=== PATIENT | female | born 1945 | race African-American/Black ===

== ENCOUNTER 2017-08-29 09:36 | Emergency (ER) | payer MEDICARE, MEDICAID ==
[2017-08-29 10:42] LABS: ABS Basophils 0.1 10^3/ul (0-0.2); ABS Eosinophils 0.4 10^3/ul (0-0.6); ABS Monocytes 0.8 10^3/ul (0-0.8); ABS Neutrophils 8.9 10^3/ul (1.5-7.7); ABS Nucleated RBC 0 10^3/ul; Eosinophil % 3.4 % (0-6); Hematocrit 35 % (35-47); Hemoglobin 11.6 g/dl (12.0-16.0); Lymphocyte % 16.4 % (25-47); Mean Corpuscular HGB Conc 33 g/dl (31-36); Mean Corpuscular Hemoglobin 30 pg (27-31); Mean Corpuscular Volume 91 fL (80-97); Mean Platelet Volume 8.5 um3 (7.4-10.4); Nucleated Red Blood Cells % 0; Platelet Count 274 10^3/ul (150-450); Red Blood Count 3.83 10^6/ul (4.0-5.4); Red Cell Distribution Width 15 % (10.5-15); White Blood Count 12.2 10^3/ul (3.5-10.8)
[2017-08-29 10:52] LABS: INR 1.06 (0.77-1.02)
[2017-08-29 12:04] VITALS: BP 153/80
--- NOTE | 2017-08-29 12:13 | RAD ---
INDICATION: Chest pain. COMPARISON: Correlation is made with a prior chest x-ray study from December 02, [address] of the abdomen and pelvis from February 27, 2017. TECHNIQUE: A portable view of the chest was obtained. FINDINGS: The heart appears mildly enlarged and unchanged from the prior study. There is increased density present overlying the left lower lobe which may represent an infiltrate. This appears unchanged from the prior exam and some of the density appears to be related to a hiatal hernia which is seen on the prior CT study. No pleural effusion is seen. IMPRESSION: LEFT BASILAR DENSITY LIKELY SECONDARY TO HIATAL HERNIA AN OVERLYING INFILTRATE CANNOT BE RULED OUT.
--- NOTE | 2017-08-29 20:53 | ED ---
Dirk Harvey Angela, scribed for Jaime Blackmon MD on 08/29/17 at 1020 . HPI Chest Pain - HPI Summary HPI Summary: This pt is a 72 y/o female presenting to [facility] from colonoscopy suite for chest pain today. Pt reports she was scheduled to have a colonoscopy today when she began to have chest pain after she checked in today. Pt states she had a lot of gas and she had one "big burp" today which completely resolved her chest pain. Currently pt denies any chest pain. Denies SOB, cough, abd pain, fever. PMHx: hiatal hernia, DM, HTN. - History of Current Complaint Chief Complaint: EDChestPainROMI Time Seen by Provider: 08/29/17 10:02 Hx Obtained From: Patient Onset/Duration: Started Hours Ago, Resolved Timing: Lasting Hours Initial Severity: Moderate Current Severity: None Pain Intensity: 0 Pain Scale Used: 0-10 Numeric Chest Pain Location: Diffuse Chest Pain Radiates: No Aggravating Factor(s): Nothing Alleviating Factor(s): Spontaneous Resolution Associated Signs and Symptoms: Positive: Chest Pain. Negative: Shortness of Breath, Fever, Cough, Abdominal Pain - Allergy/Home Medications Allergies/Adverse Reactions: Allergies Allergy/AdvReac Type Severity Reaction Status Date / Time NSAIDS (Non-Steroidal Allergy Unknown Verified 08/29/17 09:44 Anti-Inflamma Reaction Details phentolamine Allergy Unknown Verified 08/29/17 09:44 Reaction Details Sulfa (Sulfonamide Allergy Unknown Verified 08/29/17 09:44 Antibiotics) Reaction Details sumatriptan Allergy Unknown Verified 08/29/17 09:44 Reaction Details anticholinergics Allergy Unknown Unknown Uncoded 08/29/17 09:44 Reaction Details aspertame Allergy Unknown Unknown Uncoded 08/29/17 09:44 Reaction Details soybeans Allergy Unknown Unknown Uncoded 08/29/17 09:44 Reaction Details Home Medications: Home Medications Baclofen TAB* [Lioresal TAB*] 5 mg PO Q8H 08/29/17 [History Confirmed 08/29/17] Cyclobenzaprine TAB* [Flexeril 10 MG TAB*] 10 mg PO Q8H PRN 08/29/17 [History Confirmed 08/29/17] Ferrous Sulfate TAB* 325 mg PO DAILY 08/29/17 [History Confirmed 08/29/17] Furosemide TAB* [Lasix TAB*] 40 mg PO DAILY 08/29/17 [History Confirmed 08/29/17 ] Insulin ASPART (NF) [Novolog (NF)] 10 units SUBCUT TID WITH MEALS 08/29/17 [ History Confirmed 08/29/17] Insulin GLARGINE(*) [Lantus(*)] 60 units SUBCUT DAILY 08/29/17 [History Confirmed 08/29/17] Lisinopril TAB* [Prinivil TAB*] 40 mg PO DAILY 08/29/17 [History Confirmed 08/29] Methadone TAB* [Dolophine TAB*] 7.5 mg PO BEDTIME 08/29/17 [History Confirmed ] Oxybutynin TAB* [Ditropan TAB*] 5 mg PO TID 08/29/17 [History Confirmed 08/29/17 ] Ranitidine TAB (NF) [Zantac TAB (NF)] 150 mg PO BEDTIME 08/29/17 [History Confirmed 08/29/17] traZODone TAB* [Desyrel TAB*] 50 mg PO BEDTIME 08/29/17 [History Confirmed 08/29] PMH/Surg Hx/FS Hx/Imm Hx Endocrine/Hematology History: Reports: Hx Diabetes - TYPE II Cardiovascular History: Reports: Hx Hypertension GI History: Reports: Hx Gastroesophageal Reflux Disease History: Reports: Other Problems/Disorders - incontinence Musculoskeletal History: Reports: Hx Arthritis, Hx Back Problems, Other Musculoskeletal History - chronic pain Psychiatric History: Reports: Hx Depression - Surgical History Surgery Procedure, Year, and Place: bilateral THR. hysterectomy. hernia repair Infectious Disease History: No Infectious Disease History: Denies: Traveled Outside the [place] in Last 30 Days - Family History Known Family History: Positive: Cardiac Disease, Diabetes - Social History Alcohol Use: None Substance Use Type: Reports: None Smoking Status (MU): Never Smoked Tobacco Review of Systems Negative: Fever, Chills Positive: Chest Pain - now resolved Negative: Shortness Of Breath, Cough Negative: Abdominal Pain Skin: Negative Neurological: Negative All Other Systems Reviewed And Are Negative: Yes Physical Exam - Summary Physical Exam Summary: VITAL SIGNS: Reviewed. GENERAL: Patient is a well-developed and nourished female who is lying comfortable in the stretcher. Patient is not in any acute respiratory distress. HEAD AND FACE: No signs of trauma. No ecchymosis, hematomas or skull depressions. No sinus tenderness. EYES: PERRLA, EOMI x 2, No injected conjunctiva, no nystagmus. EARS: Hearing grossly intact. Ear canals and tympanic membranes are within normal limits. MOUTH: Oropharynx within normal limits. NECK: Supple, trachea is midline, no adenopathy, no JVD, no carotid bruit, no c- spine tenderness, neck with full ROM. CHEST: Symmetric, no tenderness at palpation LUNGS: Clear to auscultation bilaterally. No wheezing or crackles. CVS: Regular rate and rhythm, S1 and S2 present, no murmurs or gallops appreciated. ABDOMEN: Soft, non-tender. No signs of distention. No rebound no guarding, and no masses palpated. Bowel sounds are normal. EXTREMITIES: FROM in all major joints, no edema, no cyanosis or clubbing. NEURO: Alert and oriented x 3. No acute neurological deficits. Speech is normal and follows commands. SKIN: Dry and warm Triage Information Reviewed: Yes Vital Signs On Initial Exam: Initial Vitals Temp Pulse Resp BP Pulse Ox 98.2 F 78 15 146/91 95 08/29/17 09:42 08/29/17 09:42 08/29/17 09:42 08/29/17 09:42 08/29/17 09:42 Vital Signs Reviewed: Yes Diagnostics - Vital Signs Vital Signs Temp Pulse Resp BP Pulse Ox 08/29/17 10:03 75 142/55 97 08/29/17 10:02 77 97 08/29/17 09:42 98.2 F 78 15 146/91 95 - Laboratory Lab Results: Lab Results 08/29/17 08/29/17 08/29/17 Range/Units 10:25 10:25 10:25 WBC 12.2 H (3.5-10.8) 10^3/ul RBC 3.83 L (4.0-5.4) 10^6/ul Hgb 11.6 L (12.0-16.0) g/dl Hct 35 (35-47) % MCV 91 (80-97) fL MCH 30 (27-31) pg MCHC 33 (31-36) g/dl RDW 15 (10.5-15) % Plt Count 274 (150-450) 10^3/ul MPV 8.5 (7.4-10.4) um3 Neut % (Auto) 72.9 (38-83) % Lymph % (Auto) 16.4 L (25-47) % [place] % (Auto) 6.6 (0-7) % Eos % (Auto) 3.4 (0-6) % Baso % (Auto) 0.7 (0-2) % Absolute Neuts (auto) 8.9 H (1.5-7.7) 10^3/ul Absolute Lymphs (auto) 2.0 (1.0-4.8) 10^3/ul Absolute Monos (auto) 0.8 (0-0.8) 10^3/ul Absolute Eos (auto) 0.4 (0-0.6) 10^3/ul Absolute Basos (auto) 0.1 (0-0.2) 10^3/ul Absolute Nucleated RBC 0 10^3/ul Nucleated RBC % 0 INR (Anticoag Therapy) 1.06 H (0.77-1.02) APTT 33.1 (26.0-36.3) seconds Sodium (139-145) mmol/L Potassium (3.5-5.0) mmol/L Chloride (101-111) mmol/L Carbon Dioxide (22-32) mmol/L Anion Gap (2-11) mmol/L BUN (6-24) mg/dL Creatinine (0.51-0.95) mg/dL Est GFR ( Amer) (>60) Est GFR (Non-Af Amer) (>60) BUN/Creatinine Ratio (8-20) Glucose (70-100) mg/dL Lactic Acid (0.5-2.0) mmol/L Calcium (8.6-10.3) mg/dL Magnesium (1.9-2.7) mg/dL Total Bilirubin (0.2-1.0) mg/dL AST (13-39) U/L ALT (7-52) U/L Alkaline Phosphatase (34-104) U/L Total Creatine Kinase (10-223) U/L CK-MB (CK-2) (0.6-6.3) ng/mL Troponin I (<0.04) ng/mL B-Natriuretic Peptide 22 ( - 100) pg/mL Total Protein (6.4-8.9) g/dL Albumin (3.2-5.2) g/dL Globulin (2-4) g/dL Albumin/Globulin Ratio (1-3) TSH (0.34-5.60) mcIU/mL 08/29/17 08/29/17 Range/Units 10:25 10:25 WBC (3.5-10.8) 10^3/ul RBC (4.0-5.4) 10^6/ul Hgb (12.0-16.0) g/dl Hct (35-47) % MCV (80-97) fL MCH (27-31) pg MCHC (31-36) g/dl RDW (10.5-15) % Plt Count (150-450) 10^3/ul MPV (7.4-10.4) um3 Neut % (Auto) (38-83) % Lymph % (Auto) (25-47) % [place] % (Auto) (0-7) % Eos % (Auto) (0-6) % Baso % (Auto) (0-2) % Absolute Neuts (auto) (1.5-7.7) 10^3/ul Absolute Lymphs (auto) (1.0-4.8) 10^3/ul Absolute Monos (auto) (0-0.8) 10^3/ul Absolute Eos (auto) (0-0.6) 10^3/ul Absolute Basos (auto) (0-0.2) 10^3/ul Absolute Nucleated RBC 10^3/ul Nucleated RBC % INR (Anticoag Therapy) (0.77-1.02) APTT (26.0-36.3) seconds Sodium 136 L (139-145) mmol/L Potassium 3.6 (3.5-5.0) mmol/L Chloride 97 L (101-111) mmol/L Carbon Dioxide 28 (22-32) mmol/L Anion Gap 11 (2-11) mmol/L BUN 9 (6-24) mg/dL Creatinine 0.96 H (0.51-0.95) mg/dL Est GFR ( Amer) 73.3 (>60) Est GFR (Non-Af Amer) 57.0 (>60) BUN/Creatinine Ratio 9.4 (8-20) Glucose 164 H (70-100) mg/dL Lactic Acid 1.8 (0.5-2.0) mmol/L Calcium 8.9 (8.6-10.3) mg/dL Magnesium 1.9 (1.9-2.7) mg/dL Total Bilirubin 0.50 (0.2-1.0) mg/dL AST 18 (13-39) U/L ALT 15 (7-52) U/L Alkaline Phosphatase 47 (34-104) U/L Total Creatine Kinase 87 (10-223) U/L CK-MB (CK-2) 1.6 (0.6-6.3) ng/mL Troponin I 0.00 (<0.04) ng/mL B-Natriuretic Peptide ( - 100) pg/mL Total Protein 7.7 (6.4-8.9) g/dL Albumin 3.5 (3.2-5.2) g/dL Globulin 4.2 H (2-4) g/dL Albumin/Globulin Ratio 0.8 L (1-3) TSH 0.91 (0.34-5.60) mcIU/mL Result Diagrams: 08/29/17 10:25 08/29/17 10:25 Lab Statement: Any lab studies that have been ordered have been reviewed, and results considered in the medical decision making process. - Radiology chest XR Xray Interpretation: Positive (See Comments) - IMPRESSION: Left basilar density likely secondary to hiatal hernia an overlying infiltrate cannot be ruled out. Dr. Blackmon has reviewed this radiology report. Radiology Interpretation Completed By: Radiologist - EKG 10:08 Cardiac Rate: NL EKG Rhythm: Sinus Rhythm - at 74 bpm EKG Interpretation: No ST elevations. EKG Comparison: No Significant Change - similar to previous EKG on 12/02/13. Re-Evaluation - Re-Evaluation First Eval Re-Evaluation Time: 11:52 Change: Improved Comment: I reviewed the lab, EKG, and chest XR results with the pt. She will be discharged to home with follow up from Dr. Colon. Chest Pain Course/Dx - Course Assessment/Plan: This pt is a 72 y/o female presenting to [facility] from colonoscopy suite for chest pain today. Pt reports she was scheduled to have a colonoscopy today when she began to have chest pain after she checked in today. Pt states she had a lot of gas and she had one "big burp" today which completely resolved her chest pain. Currently pt denies any chest pain. Denies SOB, cough, abd pain, fever. PMHx: hiatal hernia, DM, HTN. Test results without any significant abnormalities except for WBC of 12.2, hemoglobin of 11.6 , glucose of 164. Troponin is 0.00. EKG shows normal sinus rhythm without ST elevations. Chest XR: Left basilar density likely secondary to hiatal hernia an overlying infiltrate cannot be ruled out. I discussed pt care with JAZIEL Sandoval, who reports that if the troponin is negative the pt can be discharged to the colonoscopy suite. Since the troponin is negative, Dr. Colon reports the pt can be discharged and follow up with her in the colonoscopy suite. Therefore pt will be discharged home with follow up from Dr. Colon. I discussed all the findings and test results with the patient. She is instructed to return to the ED for any worsening or new symptoms. Pt is hemodynamically stable, alert and oriented x3. - Chest Pain Differential Diagnosis/HQI/PQRI: Acute HI, Angina, Chest Wall, GI Disease - Diagnoses Provider Diagnoses: Atypical chest pain - Provider Notifications Discussed Care Of Patient With: Angeline Colon Time Discussed With Above Provider: 10:37 Instructed by Provider To: Other - JAZIEL Sandoval, reports that if troponin is negative the pt can be discharged to the colonoscopy suite. [11:49] I discussed the negative troponin with Dr. Colon, who reports the pt can discharged to the colonoscopy suite. Discharge - Sign-Out/Discharge Documenting (check all that apply): Discharge/Admit/Transfer - discharge - Discharge Plan Condition: Stable Disposition: HOME Patient Education Materials: Chest Pain (ED) Referrals: Angeline Colon DO [Doctor of Osteopathy] - Lane Concepcion MD [Primary Care Provider] - Additional Instructions: Go to your scheduled colonoscopy appointment today. Please follow up with Dr. Colon. RETURN TO THE ED FOR ANY NEW OR WORSENING SYMPTOMS. - Billing Disposition and Condition Condition: STABLE Disposition: HOME The documentation as recorded by the Dirk starr Angela accurately reflects the service I personally performed and the decisions made by me, Jaime Blackmon MD.
== END 2017-08-29 12:11 | disposition home or self-care (01) ==
LOC: ED 09:36
DX: R07.89 Other chest pain (principal); E11.9 Type 2 diabetes mellitus without complications; Z79.4 Long term (current) use of insulin; I10 Essential (primary) hypertension; K21.9 Gastro-esophageal reflux disease without esophagitis; F32.9 Major depressive disorder, single episode, unspecified; Z88.6 Allergy status to analgesic agent; Z88.2 Allergy status to sulfonamides; Z88.8 Allergy status to other drugs, medicaments and biological substances
CPT/HCPCS: 36415; 71045; 80053; 82550; 82553; 83605; 83735; 83880; 84443; 84484; 85025; 85610; 85730; 93005; 99282

== ENCOUNTER 2017-10-27 17:33 | Emergency (ER) | payer MEDICARE, MEDICAID ==
[2017-10-27] MEDS ORDERED: NS 0.9% 1000 ML* 1,000 ML IV ONE (18:06)
[2017-10-27 18:09] LABS: ABS Basophils 0.1 10^3/ul (0-0.2); ABS Eosinophils 0.4 10^3/ul (0-0.6); ABS Lymphocytes 2.9 10^3/ul (1.0-4.8); ABS Monocytes 0.7 10^3/ul (0-0.8); ABS Neutrophils 6.6 10^3/ul (1.5-7.7); ABS Nucleated RBC 0 10^3/ul; Eosinophil % 3.7 % (0-6); Hematocrit 37 % (35-47); Hemoglobin 12.7 g/dl (12.0-16.0); Lymphocyte % 26.8 % (25-47); Mean Corpuscular HGB Conc 34 g/dl (31-36); Mean Corpuscular Hemoglobin 31 pg (27-31); Mean Corpuscular Volume 90 fL (80-97); Mean Platelet Volume 8.7 um3 (7.4-10.4); Nucleated Red Blood Cells % 0; Platelet Count 299 10^3/ul (150-450); Red Blood Count 4.11 10^6/ul (4.00-5.40); Red Cell Distribution Width 14 % (10.5-15); White Blood Count 10.7 10^3/ul (3.5-10.8)
[2017-10-27] MEDS ORDERED: Morphine VIAL* 4 MG/ML VIAL (1 ml vial) IV ONE ×2 (18:12→20:57)
--- NOTE | 2017-10-27 18:13 | ED ---
GI/ HPI - HPI Summary HPI Summary: 72-year-old female presents with left lower quadrant pain for the past 3 days. She states she has been moving a chair around and is making the pain worse. She states pain is worse when she walks. She' has a history of inguinal hernia on the right that required surgery. She admits to diarrhea starting today. She denies any blood in her diarrhea. No history of C. difficile. No history of diverticulitis. Has not been on antibiotics recently. Denies any nausea vomiting. Her appetite has been less. No pain with urination. Has had appendix and uterus removed. - History of Current Complaint Chief Complaint: EDAbdPain Time Seen by Provider: 10/27/17 17:50 Stated Complaint: ABD PAIN Pain Intensity: 10 - Allergy/Home Medications Allergies/Adverse Reactions: Allergies Allergy/AdvReac Type Severity Reaction Status Date / Time NSAIDS (Non-Steroidal Allergy Unknown Verified 10/27/17 18:04 Anti-Inflamma Reaction Details phentolamine Allergy Unknown Verified 10/27/17 18:04 Reaction Details Sulfa (Sulfonamide Allergy Unknown Verified 10/27/17 18:04 Antibiotics) Reaction Details sumatriptan Allergy Unknown Verified 10/27/17 18:04 Reaction Details anticholinergics Allergy Unknown Unknown Uncoded 10/27/17 18:04 Reaction Details aspertame Allergy Unknown Unknown Uncoded 10/27/17 18:04 Reaction Details soybeans Allergy Unknown Unknown Uncoded 10/27/17 18:04 Reaction Details Home Medications: Home Medications Acetaminophen [Acetaminophen Extra Strength] 100 mg PO Q8H PRN 10/27/17 [ History Confirmed 10/27/17] Al Hydrox/Mg Hydrox/Simet LIQ* [Maalox Plus*] 30 ml PO Q6H PRN 10/27/17 [ History Confirmed 10/27/17] Calcium Carbonate CHEW TAB* [Tums*] 1 tab PO Q4H PRN 10/27/17 [History Confirmed 10/27/17] Conjugated Estrogens VAG CM* [Premarin VAG CREAM*] 1 gm VAGINAL SEE INSTRUCTIONS 10/27/17 [History Confirmed 10/27/17] Pectin [Throat Drops] 6 mg PO Q4H PRN 10/27/17 [History Confirmed 10/27/17] Pregabalin CAP(*) [Lyrica CAP(*)] 25 mg PO TID 10/27/17 [History Confirmed 10/27] Simethicone [Gas Relief] 80 mg PO TID PRN 10/27/17 [History Confirmed 10/27/17] Tacrolimus 0.03% OINT(NF) [Protopic 0.03% OINT(NF)] 1 applic TOPICAL BID [History Confirmed 10/27/17] PMH/Surg Hx/FS Hx/Imm Hx Endocrine/Hematology History: Reports: Hx Diabetes - TYPE II Cardiovascular History: Reports: Hx Hypertension GI History: Reports: Hx Gastroesophageal Reflux Disease History: Reports: Other Problems/Disorders - incontinence Musculoskeletal History: Reports: Hx Arthritis, Hx Back Problems, Other Musculoskeletal History - chronic pain Psychiatric History: Reports: Hx Depression - Surgical History Surgery Procedure, Year, and Place: bilateral THR. hysterectomy. hernia repair Infectious Disease History: No Infectious Disease History: Denies: Traveled Outside the [place] in Last 30 Days - Family History Known Family History: Positive: Cardiac Disease, Diabetes - Social History Alcohol Use: None Substance Use Type: Reports: None Smoking Status (MU): Never Smoked Tobacco Review of Systems Negative: Fever Negative: Chest Pain Negative: Shortness Of Breath Positive: Abdominal Pain, Diarrhea All Other Systems Reviewed And Are Negative: Yes Physical Exam Triage Information Reviewed: Yes Vital Signs On Initial Exam: Initial Vitals Temp Pulse Resp BP Pulse Ox 97.4 F 82 22 130/104 100 10/27/17 17:36 10/27/17 17:36 10/27/17 17:36 10/27/17 17:36 10/27/17 17:36 Vital Signs Reviewed: Yes Appearance: Positive: Well-Appearing Skin: Positive: Warm, Dry Head/Face: Positive: Normal Head/Face Inspection Eyes: Positive: Normal, Conjunctiva Clear ENT: Positive: Pharynx normal Respiratory/Lung Sounds: Positive: Clear to Auscultation, Breath Sounds Present Cardiovascular: Positive: Normal, RRR Abdomen Description: Positive: Soft, Other: - left inguinal tenderness, hernia felt with bares down Bowel Sounds: Positive: Present Musculoskeletal: Positive: Normal Neurological: Positive: Normal Psychiatric: Positive: Normal Diagnostics - Vital Signs Vital Signs Temp Pulse Resp BP Pulse Ox 10/27/17 17:39 82 20 130/104 98 10/27/17 17:36 97.4 F 82 22 130/104 100 - Laboratory Lab Results: Lab Results 10/27/17 Range/Units 18:00 WBC 10.7 (3.5-10.8) 10^3/ul RBC 4.11 (4.00-5.40) 10^6/ul Hgb 12.7 (12.0-16.0) g/dl Hct 37 (35-47) % MCV 90 (80-97) fL MCH 31 (27-31) pg MCHC 34 (31-36) g/dl RDW 14 (10.5-15) % Plt Count 299 (150-450) 10^3/ul MPV 8.7 (7.4-10.4) um3 Neut % (Auto) 62.3 (38-83) % Lymph % (Auto) 26.8 (25-47) % [place] % (Auto) 6.6 (0-7) % Eos % (Auto) 3.7 (0-6) % Baso % (Auto) 0.6 (0-2) % Absolute Neuts (auto) 6.6 (1.5-7.7) 10^3/ul Absolute Lymphs (auto) 2.9 (1.0-4.8) 10^3/ul Absolute Monos (auto) 0.7 (0-0.8) 10^3/ul Absolute Eos (auto) 0.4 (0-0.6) 10^3/ul Absolute Basos (auto) 0.1 (0-0.2) 10^3/ul Absolute Nucleated RBC 0 10^3/ul Nucleated RBC % 0 Result Diagrams: 10/27/17 18:00 10/27/17 18:00 Lab Statement: Any lab studies that have been ordered have been reviewed, and results considered in the medical decision making process. - CT abd CT Interpretation: No Acute Changes - IMPRESSION: 1. Large hiatal hernia with a partially intrathoracic stomach. 2. Findings suspicious for a new hepatic lesion near the gabriella. There is generalized fatty infiltration and this could represent focal fatty infiltration. However, the findings are indeterminate and MR imaging follow-up is recommended. 3. Limited evaluation of the pelvic structures due to beam hardening artifact from bilateral hip arthroplasty. 4. Benign-appearing right adrenal lesion, unchanged. CT Interpretation Completed By: Radiologist MARCK Course/Dx - Course Course Of Treatment: 72-year-old female presents with left lower quadrant pain for the past 3 days. She states she has been moving a chair around and is making the pain worse. She states pain is worse when she walks. She' has a history of inguinal hernia on the right. She admits to diarrhea starting today. She denies any blood in her diarrhea. No history of C. difficile. No history of diverticulitis. Has not been on antibiotics recently. Denies any nausea vomiting. Her appetite has been less. No pain with urination. Has had appendix and uterus removed. On exam has tenderness in left inguinal area with hernia felt in left inguinal area. No CVA tenderness. No hernia felt. wbc normal. CRP elevated. Urine shows a UTI. CT no acute pathology. unable to see pelvis due to hip prosthesis but feel a hernia on exam. Labs are normal and do not suspect incarcerated as no warmth to the area. Patient is requesting pain medication but is already on tramadol and methadone so do not feel comfortable giving more. Will place on Cipro for UTI. Patient understands and agrees with plan. - Diagnoses Differential Diagnoses - Female: Diverticulitis, Gastroenteritis (Viral), Gastroenteritis (Bacterial), Incarcerated Hernia Provider Diagnoses: Inguinal hernia, UTI (urinary tract infection) Discharge - Sign-Out/Discharge Documenting (check all that apply): Discharge/Admit/Transfer - Discharge Plan Condition: Good Disposition: HOME Prescriptions: Ciprofloxacin TAB* [Cipro 500 MG TAB*] 500 mg PO BID #9 tab Patient Education Materials: Urinary Tract Infection in Women (ED), Inguinal Hernia (ED) Referrals: Lane Concepcion MD [Primary Care Provider] - Nima Holloway MD [Medical Doctor] - Additional Instructions: Take Cipro 500mg twice a day for 5 days, first dose given in ED Follow up with primary within 5 days Follow up with surgery avoid lifting objects Return to ED if develop fever or any new or worsening symptoms - Billing Disposition and Condition Condition: GOOD Disposition: Home
[2017-10-27 18:22] LABS: Urine Appearance Clear; Urine Blood Negative (Negative); Urine Color Straw; Urine Ketones Negative (Negative); Urine Protein Negative (Negative); Urine Specific Gravity 1.004 (1.010-1.030); Urine Urobilinogen Negative (Negative)
[2017-10-27] MEDS ORDERED: Iodixanol* (CONTRAST) 320 MG/ML 100 ML SDV IV ONE (19:28)
--- NOTE | 2017-10-27 20:40 | RAD ---
INDICATION: Left lower quadrant pain. Diarrhea. COMPARISON: CT abdomen pelvis February 27, 2017 TECHNIQUE: Axial source images were obtained from the hemidiaphragms to the symphysis pubis following administration of oral and intravenous contrast. 119 mL Visipaque 320 was utilized. Coronal and sagittal reconstructed images were acquired. Lung bases: The lung bases are clear. Liver: The liver is mildly enlarged with findings of hepatic steatosis. There is a rounded area of decreased attenuation in near the gabriella hepatis. This measures approximately 4 x 3 cm. This represents an indeterminate finding. This can be evaluated with nonemergent MR imaging. There is no ductal dilatation. Gallbladder: There are no calcified gallstones. There is no evidence of wall thickening or pericholecystic fluid. Spleen: The spleen is normal in size. There are no masses. Pancreas: There is no focal pancreatic mass or ductal dilatation. Adrenal glands: There is a peripherally calcified right adrenal mass perhaps related to prior hemorrhage. The appearance is unchanged. The left adrenal gland is normal. Kidneys: The kidneys are normal in size. 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 There is a 2 cm cyst in the lower pole, unchanged.. There are prompt nephrograms and there is prompt excretion bilaterally. There There is no evidence of nephrolithiasis. Adenopathy: There is no evidence of adenopathy by size criteria. Fluid collections: There are no free or localized fluid collections. Vessels:There are atherosclerotic changes involving the aorta and iliac vessels. There is no focal aneurysm. The IVC appears normal. GI tract: There is a large diaphragmatic defect with herniation of the stomach. The upper GI tract is otherwise unremarkable. There are scattered diverticula of the colon but no CT findings of acute colitis. Pelvic organs: Not well evaluated due to beam hardening artifact from bilateral hip arthroplasty Bladder: Not well evaluated due to beam hardening artifact from bilateral hip arthroplasty. Abdominal and pelvic soft tissues: Small emboli: Hernia containing fat. Osseous structures: There are no acute osseous findings. There is bilateral hip arthroplasty Other: None IMPRESSION: 1. Large hiatal hernia with a partially intrathoracic stomach. 2. Findings suspicious for a new hepatic lesion near the gabriella. There is generalized fatty infiltration and this could represent focal fatty infiltration. However, the findings are indeterminate and MR imaging follow-up is recommended. 3. Limited evaluation of the pelvic structures due to beam hardening artifact from bilateral hip arthroplasty. 4. Benign-appearing right adrenal lesion, unchanged.
[2017-10-27] MEDS ORDERED: Ciprofloxacin TAB* 500 MG PO ONE (20:57)
[2017-10-27 22:14] VITALS: BP 158/73
--- NOTE | 2017-10-29 07:17 | PN ---
Progress Note - Progress Note Date of Service: 10/27/17 Note: Urine culture grew Escherichia coli Patient was placed on Cipro prior to discharge We'll await mukesh Joya, PAC
--- NOTE | 2017-10-30 06:44 | PN ---
Progress Note - Progress Note Date of Service: 10/30/17 Note: patient urine culture grew ESBL e coli. patient placed on cipro which is resistant to. spoke with nurse from [facility] and unsure what allergy to bactrim is so will not place on such. discussed with have stop cipro and have start augmentin which is inhibitor too. sent script for augmentin 500mg bid x5 days. told if develops fevers to return to ED as will need IV antibiotics that are sensitive to this organism.
== END 2017-10-27 23:15 | disposition home or self-care (01) ==
LOC: ED 17:33
DX: K44.9 Diaphragmatic hernia without obstruction or gangrene (principal); N39.0 Urinary tract infection, site not specified; B96.20 Unspecified Escherichia coli [E. coli] as the cause of diseases classified elsewhere; Z16.23 Resistance to quinolones and fluoroquinolones; E11.9 Type 2 diabetes mellitus without complications; I10 Essential (primary) hypertension; K21.9 Gastro-esophageal reflux disease without esophagitis; R32 Unspecified urinary incontinence; F32.9 Major depressive disorder, single episode, unspecified; Z90.710 Acquired absence of both cervix and uterus; Z88.6 Allergy status to analgesic agent; Z88.4 Allergy status to anesthetic agent; Z88.2 Allergy status to sulfonamides; Z88.8 Allergy status to other drugs, medicaments and biological substances; Z82.49 Family history of ischemic heart disease and other diseases of the circulatory system; Z83.3 Family history of diabetes mellitus
CPT/HCPCS: 36415; 74177; 80053; 81003; 81015; 83605; 83690; 85025; 86140; 87077; 87086; 87186; 96361; 96374; 96376; 99285; A9270-GY; J2270; Q9967

== ENCOUNTER 2017-10-31 10:49 | Day surgery (SDC) | payer MEDICARE, MEDICAID ==
[~2017-10-31 10:49] MED LIST: Buffered Lidocaine 0.9% SYRIN* 5 ML/SYR SYRINGE INTRADERM ONE; DiMENhydriNATE IV* 50 MG/ML VIAL IV PUSH PRN; Famotidine IV* 10 MG/ML 2 ML (20 mg) IV ONE; Lactated Ringers 1000 ML Bag* 1,000 ML IV SCH; Metoclopramide IV* 5 MG/ML 2 ML VIAL IV SLOW PU ONE; Naloxone* 0.4 MG/ML 1 ML VIAL IV PRN; Ondansetron INJ* 2 MG/ML VIAL ONE; PROCHLORPERAZINE INJ 5 MG/ML 2 ML VIAL IV PRN; fentaNYL* 50 MCG/ML 2 ML VIAL (100 MCG VIAL) IV PRN
[2017-10-31] MEDS ORDERED: Metoclopramide IV* 5 MG/ML 2 ML VIAL ONE (10:59)
[2017-10-31] MEDS ORDERED: Buffered Lidocaine 0.9% SYRIN* 5 ML/SYR SYRINGE ONE (10:59)
[2017-10-31] MEDS ORDERED: Ondansetron ODT TAB* 4 MG ONE (11:00)
[2017-10-31] MEDS ORDERED: Famotidine IV* 10 MG/ML 2 ML (20 mg) ONE (11:00)
[2017-10-31] MEDS ORDERED: ceFAZolin 2 GM PREMIX in ORs 2 GM/50 ML BAG IVPB ONE (11:31)
[2017-10-31] MEDS ORDERED: Morphine INJ* 10 MG/ML 1 ML CARPUJECT ONE (12:50)
[2017-10-31] MEDS ORDERED: fentaNYL* 50 MCG/ML 2 ML VIAL (100 MCG VIAL) ONE ×2 (13:57→16:04)
[2017-10-31] MEDS ORDERED: KETAMINE HCL* 50 MG/ML 10 ML VIAL ONE (13:57)
[2017-10-31] MEDS ORDERED: Midazolam* 1 MG/ML 5 ML VIAL (5 MG) ONE (13:58)
[2017-10-31] MEDS ORDERED: Bacitracin OINTMENT* 0.5% 0.5 oz TUBE ONE (14:16)
[2017-10-31] MEDS ORDERED: Lidocain 1% EPI 1:100,000 * 30 ML MDV ONE (14:16)
[2017-10-31] MEDS ORDERED: Chlorhexidine MW 0.12% 473ML* STOCK BOTTLE * USE UNIT DOSE ONE (14:43)
[2017-10-31] MEDS ORDERED: Propofol* 10 MG/ML 20 ML BTL IV PUSH ONE (15:26)
[2017-10-31] MEDS ORDERED: EPHEDrine (Pressors)* 50 MG/ML VIAL ONE (15:26)
[2017-10-31] MEDS ORDERED: Glycopyrrolate IV* 0.2 MG/ML 1 ML VIAL ONE (15:26)
[2017-10-31] MEDS ORDERED: Phenylephrine 10 MG/ML VIAL* 1 ML VIAL ONE (15:26)
[2017-10-31] MEDS ORDERED: oxyCODONE/Acetamin 5/325 MG* TAB ONE ×2 (15:34→15:36)
[2017-10-31] MEDS: oxyCODONE/Acetamin 5/325 MG* TAB PO PRN ×2 (15:34→15:36)
[2017-10-31] MEDS ORDERED: hydrALAZINE IV* 20 MG/ML VIAL ONE (15:43)
[2017-10-31 16:23] VITALS: BP 132/87
--- NOTE | 2017-11-01 03:06 | OP ---
DATE OF OPERATION: 10/31/17 - SDS DATE OF : 43 SURGEON: Favian Hicks MD ANESTHESIA: General endotracheal anesthesia. PRE-OP DIAGNOSES: Lower lip lesion on pathology, most consistent with papillomatous growth. POST-OP DIAGNOSES: Lower lip lesion on pathology, most consistent with papillomatous growth. OPERATIVE PROCEDURE: Wide local excision of lower lip lesion. COMPLICATIONS: None. DISPOSITION: Good. SPECIMEN: Lower lip lesion. DESCRIPTION OF PROCEDURE: The patient was taken to the operating room and placed in the supine position on the operating table. General anesthesia was induced. Orotracheally intubated, draped for the surgery. Minty Fresh was squirted on to the area and the needle-tipped cautery was used to do dots around the papillomatous growth, width about 2 cm, depth about 1 cm on the buccal surface of the lower lip. This was injected with 1% lidocaine with epinephrine. Using the needle-tipped Bovie, I made a mucosal incision, then used the scissor to undermine and remove the lesion with mucosa. Surrounding mucosa was undermined with scissors and then the wound was closed with simple interrupted 4-0 chromic. The patient tolerated procedure well, no complications. Transferred to the recovery room in stable condition. [id number]/[facility] #: [id number] [facility]PITALAmanda
== END 2018-09-11 12:53 | disposition home or self-care (01) ==
LOC: OR 10:49
PROVIDERS: ATTEND Otolaryngology
DX: L57.0 Actinic keratosis (principal); Z87.891 Personal history of nicotine dependence; I10 Essential (primary) hypertension; E11.9 Type 2 diabetes mellitus without complications; Z79.4 Long term (current) use of insulin
CPT/HCPCS: 88305; A9270-GY; J0360; J0690; J2250; J2270; J2704; J2765; J3010

== ENCOUNTER 2018-05-28 00:13 | Emergency (ER) | payer MEDICARE, MEDICAID ==
[2018-05-28] MEDS ORDERED: traMADol TAB* 50 MG PO ONE (00:27)
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
[2018-05-28 03:16] VITALS: BP 116/72
== END 2018-05-28 03:16 | disposition home or self-care (01) ==
LOC: ED 00:13
DX: M54.5 Low back pain (principal); Z88.2 Allergy status to sulfonamides; E11.9 Type 2 diabetes mellitus without complications; S30.0XXA Contusion of lower back and pelvis, initial encounter; W19.XXXA Unspecified fall, initial encounter; Y92.9 Unspecified place or not applicable; I10 Essential (primary) hypertension
CPT/HCPCS: 72131; 72192; 99282; A9270-GY

== ENCOUNTER 2018-09-04 09:21 | Day surgery (SDC) | payer MEDICARE, MEDICAID ==
[~2018-09-04 09:21] MED LIST changes: +Acetaminophen TAB* 325 MG PO PRN; -Buffered Lidocaine 0.9% SYRIN* 5 ML/SYR SYRINGE INTRADERM ONE; +Buffered Lidocaine 1% SYRIN* 1 ML/SYRINGE INTRADERM ONE; -DiMENhydriNATE IV* 50 MG/ML VIAL IV PUSH PRN; -Famotidine IV* 10 MG/ML 2 ML (20 mg) IV ONE; -Lactated Ringers 1000 ML Bag* 1,000 ML IV SCH; -Metoclopramide IV* 5 MG/ML 2 ML VIAL IV SLOW PU ONE; -Naloxone* 0.4 MG/ML 1 ML VIAL IV PRN; -Ondansetron INJ* 2 MG/ML VIAL ONE; -PROCHLORPERAZINE INJ 5 MG/ML 2 ML VIAL IV PRN; -fentaNYL* 50 MCG/ML 2 ML VIAL (100 MCG VIAL) IV PRN
[2018-09-04] MEDS ORDERED: Midazolam* 1 MG/ML 2 ML VIAL (2 MG) ONE (11:21)
[2018-09-04 12:22] VITALS: BP 122/93
--- NOTE | 2018-09-04 13:14 | OP ---
DATE OF OPERATION: 09/04/2018. DATE OF : 1945. SURGEON: Saul Vallejo M.D. PREOPERATIVE DIAGNOSIS: Cataract right eye and glaucoma. POSTOPERATIVE DIAGNOSIS: Cataract right eye and glaucoma. OPERATIVE PROCEDURE: Extracapsular cataract extraction with intraocular lens implant and iStent righ t eye. PROCEDURE: The patient was brought to the operating room after being given 1/2% Alcaine with epineph rine drops in the preoperative area. The eye was prepped and draped in the usual sterile fashion. S terile drape and eyelid speculum were placed. Again, topical 1/2% Alcaine with epinephrine was given . A paracentesis incision was made at the 9 o'clock position with the No.75 blade. Clear cornea inc ision 2.2 x 2.2-mm was created at the 12 o'clock position starting at the anterior limbus using the 2 .2-mm keratome. The anterior chamber was irrigated with 0.4 mL of 1% non-preservative intracameral l idocaine and filled with DisCoVisc. A capsulorrhexis was completed using the cystotome and the Utrat a forceps. Hydrodissection was performed with balanced salt solution. The lens nucleus was removed w ith the Phacoemulsification handpiece without incident. Cortex was removed with the irrigation-aspir ation handpiece. The capsular bag was re-inflated using DisCoVisc and an [id number] 13.5 implant was ins erted with the shooter, followed by an iStent inject placed at the 2 o'clock and 4 o'clock positions with its shooter. The irrigation-aspiration handpiece was used to remove all residual DisCoVisc. Th e eye was refilled with balanced salt solution and the wound checked and found to be watertight. Top ical Maxitrol drops were given. [id number]/[facility] #: [id number]
[2018-09-04] MEDS ORDERED: Phenylephrine OPHTH SOL 2.5%* 2 ML ONE (13:55)
[2018-09-04] MEDS ORDERED: Ketorolac 0.5% OPHTH (NF) 0.5 % 5 ML BTL ONE (13:55)
[2018-09-04] MEDS ORDERED: Lidocaine 1%* 5 ML VIAL ONE (13:55)
[2018-09-04] MEDS ORDERED: Cyclopentolate 1% OPTH.SOL* 2 ML BTL ONE (13:55)
[2018-09-04] MEDS ORDERED: Povidone Iodine 5% OPTH* 30 ML BTL ONE (13:55)
[2018-09-04] MEDS ORDERED: acetaZOLAMIDE TAB* 250 MG ONE (13:55)
[2018-09-04] MEDS ORDERED: Proparacaine 0.5% OPHTH.SOL* 15 ML BTL ONE (13:55)
[2018-09-04] MEDS ORDERED: Lidocaine 2% EPI 1:200000 MPF*10-20 ML VIAL ONE (13:55)
[2018-09-04] MEDS ORDERED: Neomycin/Polymy/Dex OPTH.SUSP* MAXITROL 0.1% 5 ML ONE (13:55)
== END 2018-09-04 12:00 | disposition home or self-care (01) ==
LOC: OREAST 09:21
PROVIDERS: ATTEND Specialist
DX: H25.813 Combined forms of age-related cataract, bilateral (principal); H40.1131 Primary open-angle glaucoma, bilateral, mild stage; H35.372 Puckering of macula, left eye; H35.1 Retinopathy of prematurity; E11.3293 Type 2 diabetes mellitus with mild nonproliferative diabetic retinopathy without macular edema, bilateral; G89.29 Other chronic pain; F32.9 Major depressive disorder, single episode, unspecified; K21.9 Gastro-esophageal reflux disease without esophagitis; G47.00 Insomnia, unspecified; Z88.2 Allergy status to sulfonamides; Z88.8 Allergy status to other drugs, medicaments and biological substances; Z79.4 Long term (current) use of insulin; Z01.818 Encounter for other preprocedural examination
CPT/HCPCS: A9270-GY; C1783; J2250; V2632

== ENCOUNTER → 2018-09-11 09:45 | Day surgery (SDC) | payer MEDICARE, MEDICAID ==
[~2018-09-11 09:45] MED LIST changes: +Cyclopentolate 1% OPTH.SOL* 2 ML BTL ONE; +Ketorolac 0.5% OPHTH (NF) 0.5 % 5 ML BTL ONE; +Lidocaine 1%* 5 ML VIAL ONE; +Lidocaine 2% EPI 1:200000 MPF*10-20 ML VIAL ONE; +Midazolam* 1 MG/ML 2 ML VIAL (2 MG) ONE; +Neomycin/Polymy/Dex OPTH.SUSP* MAXITROL 0.1% 5 ML ONE; +Phenylephrine OPHTH SOL 2.5%* 2 ML ONE; +Povidone Iodine 5% OPTH* 30 ML BTL ONE; +Proparacaine 0.5% OPHTH.SOL* 15 ML BTL ONE
[2018-09-11 12:35] VITALS: BP 124/68
--- NOTE | 2018-09-11 13:28 | OP ---
OPERATIVE NOTE: DATE OF OPERATION: 09/11/18 DATE OF : 43 SURGEON: Saul Vallejo M.D. PREOPERATIVE DIAGNOSIS: Cataract and glaucoma, left eye. POSTOPERATIVE DIAGNOSIS: Cataract and glaucoma, left eye. OPERATIVE PROCEDURE: Extracapsular cataract extraction with IOL and iStent, left eye. PROCEDURE: The patient was brought to the operating room after being given 1/2% Alcaine with epineph rine drops in the preoperative area. The eye was prepped and draped in the usual sterile fashion. S terile drape and eyelid speculum were placed. Again, topical 1/2% Alcaine with epinephrine was given . A paracentesis incision was made at the 3 o'clock position with the No.75 blade. Clear cornea inc ision 2.2 x 2.2-mm was created at the 6 o'clock position starting at the anterior limbus using the 2. 2-mm keratome. The anterior chamber was irrigated with 0.4 mL of 1% non-preservative intracameral li docaine and filled with DisCoVisc. A capsulorrhexis was completed using the cystotome and the Utrata forceps. Hydrodissection was performed with balanced salt solution. The lens nucleus was removed wi th the Phacoemulsification handpiece without incident. Cortex was removed with the irrigation-aspira tion handpiece. The capsular bag was re-inflated using DisCoVisc and an [id number] implant was insert ed with the shooter followed by an iStent inject inserted with its shooter at the 8 o'clock and 10 o' clock positions. The irrigation-aspiration handpiece was used to remove all residual DisCoVisc. The eye was refilled with balanced salt solution and the wound checked and found to be watertight. Topi alfredo Maxitrol drops were given. [id number]/[facility] #: [id number]
== END | disposition home or self-care (01) ==
LOC: OREAST 09:45
PROVIDERS: ATTEND Specialist
DX: H25.812 Combined forms of age-related cataract, left eye (principal); H40.1131 Primary open-angle glaucoma, bilateral, mild stage; H35.372 Puckering of macula, left eye; H35.1 Retinopathy of prematurity; E11.3293 Type 2 diabetes mellitus with mild nonproliferative diabetic retinopathy without macular edema, bilateral; Z79.4 Long term (current) use of insulin; K21.9 Gastro-esophageal reflux disease without esophagitis; F32.9 Major depressive disorder, single episode, unspecified; G89.29 Other chronic pain; I10 Essential (primary) hypertension; Z86.73 Personal history of transient ischemic attack (TIA), and cerebral infarction without residual deficits
CPT/HCPCS: A9270-GY; C1783; J2250; V2632